=== PATIENT | male | born 1960 | race Caucasian/White ===

== ENCOUNTER 2019-03-26 20:35 | Emergency (ER) | payer MEDICAID ==
[~2019-03-26] VITALS: Ht 177.8 cm; Wt 95.5 kg
[~2019-03-26 20:35] MED LIST: CLIN-90 PO; COU5T PO; FLO0.4C PO; METH-603 PO
[2019-03-26] MEDS ORDERED: gentamicin 0.1% topical ointment 15gm TP SCH (21:55)
[2019-03-26] MEDS ORDERED: gentamicin 0.1% topical ointment 15gm TP ONE (21:55)
[2019-03-26] MEDS ORDERED: DOXY100C2 PO (22:28)
[2019-03-26 22:33] VITALS: BP 140/88
== END 2019-03-26 22:34 | disposition home or self-care (01) ==
LOC: ER 20:36
DX: I83.009 Varicose veins of unspecified lower extremity with ulcer of unspecified site (principal); E11.622 Type 2 diabetes mellitus with other skin ulcer; L97.919 Non-pressure chronic ulcer of unspecified part of right lower leg with unspecified severity; L97.929 Non-pressure chronic ulcer of unspecified part of left lower leg with unspecified severity; G89.29 Other chronic pain; F41.9 Anxiety disorder, unspecified; F17.200 Nicotine dependence, unspecified, uncomplicated; F15.90 Other stimulant use, unspecified, uncomplicated; Z60.2 Problems related to living alone; Z56.0 Unemployment, unspecified; Z79.899 Other long term (current) drug therapy; Z79.01 Long term (current) use of anticoagulants
CPT/HCPCS: 87070; 87077; 87186; 99283